=== PATIENT | female | born 1980 | race Caucasian/White ===

== ENCOUNTER → 2023-05-07 | Day surgery (SDC) | payer OTHER | END | disposition home or self-care (01) | LOC: JRADUS-SUR 11:01 | PROVIDERS: ATTEND Midwife | PROC: 0HBT3ZX Excision of Right Breast, Percutaneous Approach, Diagnostic (ICD-10-PCS; principal; 2023-05-07) | DX: D24.1 Benign neoplasm of right breast (principal); N63.11 Unspecified lump in the right breast, upper outer quadrant | CPT/HCPCS: 19083; 77065-TC; 87899; A4648 ==